=== PATIENT | female | born 1955 | race Asian ===

== ENCOUNTER 2017-07-26 07:29 | Day surgery (SDC) | payer OTHER ==
[~2017-07-26] VITALS: Ht 149.9 cm; Wt 64.4 kg
[~2017-07-26 07:29] MED LIST: CEFAZOLIN SOD 1 GM/ ISO 50 ML PREMIX IV ONE
[2017-07-26] MEDS ORDERED: SUCCINYLCHOLINE CHLORIDE 20 MG/ML(QUELICIN) IVP ONE (07:30)
[2017-07-26] MEDS ORDERED: GLYCOPYRROLATE 0.2 MG/ML VIAL IJ ONE (07:30)
[2017-07-26] MEDS ORDERED: PROPOFOL 200MG/ 20ML VIAL (DIPRIVAN) IV ONE (07:30)
[2017-07-26] MEDS ORDERED: SEVOFLURANE 15 MIN GAS INH ONE (07:30)
[2017-07-26] MEDS ORDERED: NEOSTIGMINE METHYLSULFATE 1 MG/ML, 10 ML VIAL IVP ONE (07:30)
[2017-07-26] MEDS ORDERED: LR 1,000 ML IV.SOLN IV ONE (07:30)
[2017-07-26] MEDS ORDERED: MIDAZOLAM HCL 5 MG/ML VIAL (VERSED) IV ONE (07:30)
[2017-07-26] MEDS ORDERED: ROCURONIUM BROMIDE 10 MG/ML (ZEMURON) IV ONE (07:30)
[2017-07-26] MEDS ORDERED: NS IRRIG SOLN 1000 ML IR ONE (07:30)
[2017-07-26] MEDS ORDERED: ONDANSETRON HCL 4 MG/2 ML VIAL IVP ONE (07:30)
[2017-07-26] MEDS ORDERED: fentaNYL CITRATE/PF 100 MCG/2 ML AMP IVP ONE (07:30)
[2017-07-26] MEDS ORDERED: LR 1,000 ML IV SCH (12:30)
[2017-07-26] MEDS ORDERED: MORPHINE 4 MG/ML INJ. SYRINGE IVP PRN ×3 (12:30)
[2017-07-26] MEDS ORDERED: METOCLOPRAMIDE HCL 10 MG/2 ML VIAL IVP PRN (12:30)
[2017-07-26] MEDS ORDERED: D5/0.45 NS 1,000 ML IV SCH (12:36)
[2017-07-26 13:48] VITALS: BP_SYST 143
[2017-07-26] MEDS ORDERED: HYDROmorphone 1 MG INJ. 1 MG/ML AMPUL IVP PRN (15:00)
[2017-07-26] MEDS ORDERED: HYDROcodone/ACETAMIN 5-325 MG TAB (NORCO/ VICODIN) PO PRN ×2 (15:00)
[2017-07-26] MEDS ORDERED: HYDROcodone/ACETAMIN 5-325 MG TAB (NORCO/ VICODIN) ONE (15:32)
== END 2017-07-26 16:25 | disposition home or self-care (01) ==
LOC: SMU 07:29 → SDS 07:29 → EDSTATUS 09:00 → SDS 16:25
PROVIDERS: ATTEND Colon & Rectal Surgery
DX: N63.11 Unspecified lump in the right breast, upper outer quadrant (principal); N60.91 Unspecified benign mammary dysplasia of right breast; N60.11 Diffuse cystic mastopathy of right breast; Z98.818 Other dental procedure status; E78.5 Hyperlipidemia, unspecified; Z98.890 Other specified postprocedural states; E66.3 Overweight; M19.90 Unspecified osteoarthritis, unspecified site; Z88.1 Allergy status to other antibiotic agents
CPT/HCPCS: 19081; 76098; 88305; J0330; J0690; J2250; J2405; J2704; J2710; J3010; J3490; J7120; 88307